=== PATIENT | female | born 1945 | race Caucasian/White ===

== ENCOUNTER → 2016-09-30 | Outpatient (CLI) | payer MEDICARE, OTHER ==
[~2016-09-30] MED LIST: CARVEDILOL25 MG ORAL; ENALAPRIL MALEA10 MG ORAL; FUROSEMIDE40 MG ORAL; LEVOTHYROXINE50 MCG ORAL; MULTIPLE VITAM1 EAC6 PO; SIMVASTATIN20 MG ORAL
[2016-09-30 14:40] VITALS: BP 168/92
--- NOTE | 2016-09-30 21:08 | Consultation ---
DATE OF CONSULTATION: 09/30/2016 ATTENDING PHYSICIAN: Shabbir Orosco M.D. CHIEF COMPLAINT: Screening colonoscopy evaluation. HISTORY OF PRESENT ILLNESS: This is a very pleasant 71-year-old female with the past medical history of hypertension, hypothyroidism, and history of stroke in the past, who was referred to us for screening colonoscopy evaluation. The patient, at this time denies any abdominal pain. No nausea. No vomiting. No dysphagia. No odynophagia. PAST MEDICAL HISTORY: 1. Hypertension. 2. Hypothyroidism. 3. Hypercholesterolemia. PAST SURGICAL HISTORY: 1. Appendectomy. 2. Tonsillectomy. 3. Right breast lumpectomy. 4. Cataract surgery. ALLERGIES: No known drug allergies. MEDICATION: She is on, 1. Enalapril. 2. Levothyroxine. 3. Multivitamin. 4. Simvastatin. 5. Carvedilol. 6. Lasix. SOCIAL HISTORY: The patient denies any tobacco, alcohol, or drug abuse. She lives in [place] by herself. FAMILY HISTORY: Noncontributory. REVIEW OF SYSTEMS: A 10-point review of systems was performed and pertinent positives in history of present illness. PHYSICAL EXAMINATION: VITAL SIGNS: Blood pressure is 168/92, pulse 83, respirations 20, and temperature 97.6. HEENT: Normocephalic and atraumatic. Sclerae icterus. NECK: Supple. No evidence of lymphadenopathy. CARDIOVASCULAR: Regular rate and rhythm. Plus S1 and S2. LUNGS: Clear to auscultation bilaterally. ABDOMEN: Positive bowel sounds. Soft and nontender. No rebound. No guarding. No peritoneal sign. EXTREMITIES: No cyanosis. No clubbing. No edema. LABORATORY DATA: Laboratories not available. ASSESSMENT AND PLAN: This is a 71-year-old female, referred for screening colonoscopy evaluation. Plan to perform colonoscopy scheduled for next five days. The patient was given prep and instruction for in presence of the daughter. I want to thank, Dr. Shabbir Orosco, for this kind referral. Carlos Mosquera M.D. DR: LANA JOB#: [id number] CC: Shabbir Orosco M.D.; Fax#: [phone]
== END | disposition home or self-care (01) ==
LOC: PAN 13:53
DX: Z12.11 Encounter for screening for malignant neoplasm of colon (principal); I10 Essential (primary) hypertension; E03.9 Hypothyroidism, unspecified; E78.00 Pure hypercholesterolemia, unspecified; Z90.89 Acquired absence of other organs; Z86.73 Personal history of transient ischemic attack (TIA), and cerebral infarction without residual deficits
CPT/HCPCS: 99201

== ENCOUNTER → 2016-11-09 | Day surgery (SDC) | payer MEDICARE, MEDICAID ==
[2016-11-09] VITALS (9 sets, daily range): BP systolic 123–160; BP diastolic 59–84
[~2016-11-09] VITALS: Ht 154.9 cm; Wt 59.0 kg
[~2016-11-09] MED LIST changes: +ASPIR 8181 MG ORAL; +Glycopyrrolate 0.2mg/ml 1ml Vial ONE; +LR 1000ml ONE; +Lidocaine 1% MPF 10mg/ml 5ml ONE; +PRESERVISION L1 EACH PO; +Propofol 10mg/ml 20ml IV ONE
--- NOTE | 2016-11-09 08:56 | Pre-Procedure Note/Attestation ---
Pre-Procedure Note/Attestation Complete Prior to Procedure Planned Procedure: not applicable Procedure Narrative: colonoscopy Indications for Procedure Pre-Operative Diagnosis: screening Attestation I attest that I discussed the nature of the procedure; its benefits; risks and complications; and alternatives (and the risks and benefits of such alternatives ), prior to the procedure, with the patient (or the patient's legal field service representative). I attest that, if there was a reasonable possibility of needing a blood transfusion, the patient (or the patient's legal field service representative) was given the [facility] standardized written summary, pursuant to the [place]ay Becenti Blood Safety Act ([place] Health and Safety Code # 1645, as amended). I attest that I re-evaluated the patient just prior to the surgery and that there has been no change in the patient's H&P, except as documented below: KAPIL AMES November 09, 2016 08:56
--- NOTE | 2016-11-09 08:57 | Short Stay Surgery H&P ---
History of Present Illness History of Present Illness Chief Complaint screening colon HPI Tammy Whaley is a 71 year old female who was admitted on for Colon Screening Patient History Allergies: Coded Allergies: NO KNOWN ALLERGIES (Unverified Allergy, 07/31/13) PAST MEDICAL HISTORY: (1) HTN (hypertension) (2) Hyperchloremia Past Surgeries: Social History: Medication History Scheduled Aspirin* (Aspir 81*), 81 MG ORAL DAILY, (Reported) Enalapril Maleate* (Enalapril Maleate*), 20 MG ORAL BID, (Reported) Levothyroxine Sodium* (Levothyroxine Sodium*), 50 MCG ORAL DAILY, (Reported) Multivitamin (Multiple Vitamins), 1 EACH PO DAILY, (Reported) Simvastatin (Zocor), 20 MG ORAL BEDTIME, (Reported) Miscellaneous Medications Vit C/Brandy Ac/Lut/Copper/Znox (Preservision Lutein Softgel), 1 EACH PO, ( Reported) Review of Systems Cardiovascular: Reports: no symptoms Respiratory: Reports: no symptoms Skeletal: Reports: no symptoms Gastrointestinal: Reports: no symptoms Genitourinary: Reports: no symptoms Neurologic: Reports: no symptoms Endocrine: Reports: no symptoms Hematologic: Reports: no symptoms Physical Exam Vital Signs Last Vital Signs Date Time Temp Pulse Resp B/P Pulse Ox O2 Delivery O2 Flow Rate FiO2 11/09/16 08:10 97.3 52 18 151/83 96 Room Air Skin: normal HENT: normal Heart: normal Lungs: normal Abdomen: normal Extremities: normal Plan Plan of Care colonoscopy Final Diagnosis: Attestation Are the patient's medical conditions optimized for surgery? Attestation Response: yes KAPIL AMES November 09, 2016 08:57
--- NOTE | 2016-11-09 09:40 | Anethesia Preoperative Eval ---
Anesthesia Pre-op PMH/ROS General Date of Evaluation: November 09, 2016 Time of Evaluation: 09:38 Anesthesiologist: bill ASA Score: ASA 2 Mallampati Score Class I : Soft palate, uvula, fauces, pillars visible Class II: Soft palate, uvula, fauces visible Class III: Soft palate, base of uvula visible Class IV: Only hard plate visible Mallampati Classification: Class II Surgeon: brayan Diagnosis: colon screen Surgical Procedure: colonoscopy Anesthesia History: none Family History: no anesthesia problems Allergies: Coded Allergies: NO KNOWN ALLERGIES (Unverified Allergy, 07/31/13) Medications: see eMAR Past Medical History Cardiovascular: Reports: HTN Pulmonary: Denies: COPD, CARLOS ENRIQUE, asthma, other Gastrointestinal/Genitourinary: Denies: CRI, ESRD, GERD, other Neurologic/Psychiatric: Reports: CVA Endocrine: Reports: hypothyroidism Hematology/Immune: Denies: DVT, bleeding disorder, other Musculoskeletal/Integumentary: Denies: DDD, DJD, OA, RA, edema, other PSxH Narrative: lumpectomy Anesthesia Pre-op Phys. Exam Physician Exam Last Vital Signs Date Time Temp Pulse Resp B/P Pulse Ox O2 Delivery O2 Flow Rate FiO2 11/09/16 08:10 97.3 52 18 151/83 96 Room Air Constitutional: NAD Neurologic: CN 2-12 intact Cardiovascular: RRR Respiratory: CTA Gastrointestinal: S/NT/ND Airway Exam Mallampati Score: Class II MO: full ROM: full Dentures: no lower, no upper Anesthesia Pre-op A/P Studies Pre-op Studies: EKG - sr Risk Assessment & Plan Plan: mac Status Change Before Surgery: No Pre-Antibiotics Drug: none MARIA DOLORES SANCHEZ CRNA November 09, 2016 09:40
--- NOTE | 2016-11-09 10:09 | Endoscopy Procedure Note ---
Endoscopy Procedure Note Indication for Procedure: screening Procedures Performed: colonoscopy Operative Findings/Diagnosis: diverticulosis Specimen: none Pt Tolerated Procedure Well: Yes Estimated Blood Loss: none Anesthesiologist: michael Anesthesia: MAC Implant(s) used?: No 50 yrs or older w/o bx or poly: No 10yrs. F/U not recommended: Yes If not recommended, why?: Above average risk 10 yrs. F/U needed: Yes 18 years or older w/prev. colo: No KAPIL AMES November 09, 2016 10:09
--- NOTE | 2016-11-09 10:23 | Immediate Post-Op Evaluation ---
Immediate Post-Op Evalulation Immediate Post-Op Evalulation Procedure: colonoscopy Date of Evaluation: November 09, 2016 Time of Evaluation: 10:15 Blood Pressure Systolic: 125 Blood Pressure Diastolic: 63 Pulse Rate: 68 Respiratory Rate: 14 O2 Sat by Pulse Oximetry: 100 Temperature (Fahrenheit): 98.5 Nausea: No Vomiting: No Complications none Patient Status: awake, reacts, patent Hydration Status: adequate Drug: none MARIA DOLORES SANCHEZ CRNA November 09, 2016 10:23
--- NOTE | 2016-11-09 11:18 | 48 Hour Post Anesthesia Eval ---
Post Anesthesia Evaluation Procedure: colonoscopy Date of Evaluation: November 09, 2016 Time of Evaluation: 11:17 Blood Pressure Systolic: 125 0: 65 Pulse Rate: 78 Respiratory Rate: 14 Temperature (Fahrenheit): 98.5 Airway: patent Mental Status/LOC: patient returned to baseline Post-Anesthesia Complications: none Follow-up care needed: N/A MARIA DOLORES SANCHEZ CRNA November 09, 2016 11:18
--- NOTE | 2016-11-09 18:58 | Procedure Note ---
DATE OF PROCEDURE: 11/09/2016 SURGEON: Carlos Mosquera M.D. PROCEDURE: Colonoscopy. ANESTHESIA: Per Luiza SANDERS. INSTRUMENT: Olympus adult flexible colonoscope. INDICATION: Screening colonoscopy evaluation. REASON FOR PROCEDURE: The procedure, risks, benefits, and possible consequences, including hemorrhage, aspiration, perforation and infection, and alternative treatments, were explained to the patient/legal guardian by Dr. Carlos Mosquera and the patient/legal guardian understood and accepted these risks. DESCRIPTION OF PROCEDURE: After informed consent was obtained and the patient was adequately sedated, first rectal exam was performed, which showed positive for internal hemorrhoids. Then, the scope was advanced from the rectum into the sigmoid colon. At this point, we had to switch the scope given there was significant diverticulosis in the left colon and we could not pass the regular scope, so we switched to a pediatric scope. Then, we were able to pass the pediatric scope successfully to the cecum documented with appendiceal orifice, ileocecal valve, and right upper quadrant palpation. Quality of prep was very good. The patient had normal colonoscopy examination except for significant diverticulosis in the left colon. No obvious polyp, mass, or any other pathology was seen. Retroflexion of rectum showed evidence of internal hemorrhoids. SUMMARY OF FINDINGS: 1. Significant sigmoid diverticulosis. 2. Internal hemorrhoids. RECOMMENDATION: The patient will need a repeat colonoscopy in five years. Carlos Mosquera M.D. DR: DEANA JOB#: [id number] CC:
== END | disposition home or self-care (01) ==
LOC: GAS 07:31
DX: Z12.11 Encounter for screening for malignant neoplasm of colon (principal); K64.8 Other hemorrhoids; K57.30 Diverticulosis of large intestine without perforation or abscess without bleeding; I10 Essential (primary) hypertension; E03.9 Hypothyroidism, unspecified; E87.8 Other disorders of electrolyte and fluid balance, not elsewhere classified; Z86.73 Personal history of transient ischemic attack (TIA), and cerebral infarction without residual deficits; Z79.82 Long term (current) use of aspirin
CPT/HCPCS: 93005; G0121; J2704; J7120; 94003; 94150

== ENCOUNTER 2016-11-19 13:25 | Outpatient (CLI) | payer MEDICARE, MEDICAID ==
[~2016-11-19 13:25] MED LIST changes: -Glycopyrrolate 0.2mg/ml 1ml Vial ONE; -LR 1000ml ONE; -Lidocaine 1% MPF 10mg/ml 5ml ONE; -Propofol 10mg/ml 20ml IV ONE
--- NOTE | 2016-11-19 13:58 | GI Progress Note ---
Assessment/Plan Problems: (1) Hemorrhoid ICD Codes: K64.9 - Unspecified hemorrhoids SNOMED: 46798130 (2) Diverticulosis ICD Codes: K57.90 - Diverticulosis of intestine, part unspecified, without perforation or abscess without bleeding SNOMED: 633518241 (3) Constipation ICD Codes: K59.00 - Constipation, unspecified SNOMED: 26745589 (4) Elevated cholesterol ICD Codes: E78.00 - Pure hypercholesterolemia, unspecified SNOMED: 04594100 (5) Hypothyroid ICD Codes: E03.9 - Hypothyroidism, unspecified SNOMED: 94148980 (6) HTN (hypertension) ICD Codes: I10 - Essential (primary) hypertension SNOMED: 04392797 Status: stable Status Narrative Seen with Dr. Mosquera. Assessment/Plan colonoscopy reviewed with patient livia snehaheydi ESTEVES x 3 months Subjective Gastrointestinal/Abdominal: Reports: constipated Objective T 98.0 BP 158/86 P 60 98 RA Denies weight loss General Appearance: no apparent distress, alert Cardiovascular: normal rate Respiratory/Chest: normal breath sounds, no respiratory distress Abdominal Exam: normal bowel sounds, non tender, soft Objective Endoscopy Procedure Note Indication for Procedure: screening Procedures Performed: colonoscopy Operative Findings/Diagnosis: diverticulosis KAPIL MOSQUERA - November 09, 2016 10:09 Carolynn Gorman N.P. November 19, 2016 13:58
[2016-11-19 14:29] VITALS: BP 158/86
== END 2016-11-19 13:55 | disposition home or self-care (01) ==
LOC: PAN 13:25
DX: K64.9 Unspecified hemorrhoids (principal); K57.90 Diverticulosis of intestine, part unspecified, without perforation or abscess without bleeding; K59.00 Constipation, unspecified; E78.00 Pure hypercholesterolemia, unspecified; E03.9 Hypothyroidism, unspecified; I10 Essential (primary) hypertension
CPT/HCPCS: 99211